=== PATIENT | female | born 1980 | race Caucasian/White ===

== ENCOUNTER 2017-09-15 15:06 | Outpatient (CLI) | payer BC | END 2017-09-15 15:07 | disposition home or self-care (01) | LOC: BICMAMMO 15:06 | PROVIDERS: ATTEND Obstetrics & Gynecology | DX: N63.20 Unspecified lump in the left breast, unspecified quadrant (principal); Z80.3 Family history of malignant neoplasm of breast | CPT/HCPCS: 77066; G0279 ==

== ENCOUNTER 2022-01-28 07:51 | Outpatient (CLI) | payer BC | END 2022-01-28 07:52 | disposition home or self-care (01) | LOC: BICULT 07:51 | PROVIDERS: ATTEND Obstetrics & Gynecology | DX: N63.11 Unspecified lump in the right breast, upper outer quadrant (principal) ==

== ENCOUNTER 2022-03-12 09:15 | Outpatient (CLI) | payer BC | END 2022-03-12 09:16 | disposition home or self-care (01) | LOC: BICCT 09:15 | PROVIDERS: ATTEND Physician Assistant | DX: H93.A3 Pulsatile tinnitus, bilateral (principal); R42 Dizziness and giddiness; M47.812 Spondylosis without myelopathy or radiculopathy, cervical region | CPT/HCPCS: 70470; 70491; 82565 ==